=== PATIENT | female | born 1930 | race Caucasian/White ===

== ENCOUNTER → 2017-03-24 | Outpatient (CLI) | payer MEDICARE, BC ==
--- NOTE | 2017-03-24 15:29 | XR ---
Right knee HISTORY: Trauma and pain 3 views of the right knee Probable vascular calcifications noted incidentally. Bone mineralization is mildly reduced. Alignment and joint spaces are obtained. No joint effusion. IMPRESSION: No acute fracture or dislocation.
== END ==
LOC: RADXRYALE 11:43
PROVIDERS: ATTEND Physician Assistant
DX: M25.561 Pain in right knee (principal)

== ENCOUNTER 2017-06-05 18:52 | Emergency (ER) | payer MEDICARE, BC ==
[2017-06-05 19:05] VITALS: BP 149/70; PULSE 84; RESP 16; TEMP 97.8
--- NOTE | 2017-06-05 19:15 | ED ---
General Adult HPI - General Chief complaint: Extremity Injury, Upper Stated complaint: Fall Time Seen by Provider: 06/05/17 19:08 Source: patient, RN notes reviewed Mode of arrival: wheelchair Limitations: no limitations - History of Present Illness Initial comments: 86 -year-old female presents for a trip and fall. She states that she tripped over some cords at her house and found her left side. She states that she lightly left-sided forehead. Significant left-sided neck the left shoulder and left knee. She was able to get up by herself after the fall. She did not lose consciousness. There is no dizziness or chest pain prior to the fall. Patient states that she was concerned due to her continued pain mostly in left shoulder that she thought that she should be evaluated. Patient denies any other injuries. Patient denies any lacerations or abrasions.Patient denies any recent fever, chills, shortness of breath, chest pain, back pain, abdominal pain , nausea vomiting, numbness or tingling, dysuria or hematuria, constipation or diarrhea, headaches or visual changes, or any other current symptoms. - Related Data Home Medications Medication Instructions Recorded Confirmed Famotidine [Pepcid] 20 mg PO BID PRN 10/30/13 04/23/17 Allergies Allergy/AdvReac Type Severity Reaction Status Date / Time No Known Allergies Allergy Verified 06/05/17 19:04 Review of Systems ROS Statement: Those systems with pertinent positive or pertinent negative responses have been documented in the HPI. ROS Other: All systems not noted in ROS Statement are negative. Past Medical History Past Medical History: GERD/Reflux History of Any Multi-Drug Resistant Organisms: None Reported Past Surgical History: Appendectomy, Cholecystectomy Additional Past Surgical History / Comment(s): Patient beleived appendectomy was included with cholecystectomy. Past Anesthesia/Blood Transfusion Reactions: No Reported Reaction Past Psychological History: No Psychological Hx Reported Smoking Status: Never smoker Past Alcohol Use History: None Reported Past Drug Use History: None Reported - Past Family History Mother Family Medical History: Diabetes Mellitus General Exam Limitations: no limitations General appearance: alert, in no apparent distress Head exam: Present: atraumatic, normocephalic, normal inspection ENT exam: Present: normal exam, mucous membranes moist Neck exam: Present: normal inspection. Absent: tenderness, meningismus, lymphadenopathy Respiratory exam: Present: normal lung sounds bilaterally. Absent: respiratory distress, wheezes, rales, rhonchi, stridor Cardiovascular Exam: Present: regular rate, normal rhythm, normal heart sounds. Absent: systolic murmur, diastolic murmur, rubs, gallop, clicks Extremities exam: Present: normal inspection, full ROM, tenderness (To the left anterior shoulder.), normal capillary refill. Absent: pedal edema, joint swelling, calf tenderness Back exam: Present: normal inspection Neurological exam: Present: alert, oriented X3, CN II-XII intact, reflexes normal. Absent: motor sensory deficit Psychiatric exam: Present: normal affect, normal mood Course Vital Signs 06/05/17 19:02 Temperature 97.8 F Pulse Rate 84 Respiratory 16 Rate Blood Pressure 149/70 O2 Sat by Pulse 97 Oximetry Medical Decision Making - Medical Decision Making 86-year-old female presents emergency Department chief complaint of trip and fall. This time patient's imaging has reviewed and is negative for any acute processes. At this time we did discuss close follow-up we discussed return parameters discussed all questions. He stated the Colin they are in agreement this plan. We did discuss what to watch for. They will be discharged. - Radiology Data Radiology results: report reviewed, image reviewed Disposition Clinical Impression: Fall, Minor head injury without loss of consciousness, Contusion of left shoulder, Contusion of left knee Disposition: HOME SELF-CARE Condition: Stable Instructions: Fall Prevention for Older Adults (ED), Head Injury (ED) Additional Instructions: Please use medication as discussed. Please follow up with family doctor if symptoms have not improved over the next two days. Please return to the emergency room if your symptoms increase or worsen or for any other concerns. Referrals: Ryan Narvaez DO [Primary Care Provider] - 1-2 days Time of Disposition: 20:22
--- NOTE | 2017-06-05 19:49 | CT ---
EXAMINATION TYPE: CT brain ann wo con DATE OF EXAM: 06/05/2017 COMPARISON: 04/23/2017 HISTORY: Left sided facial injury after fall. CT DLP: 1304.4 mGycm Automated exposure control for dose reduction was used. TECHNIQUE: CT scan of the head and cervical spine are performed without contrast. FINDINGS: There is cerebral cortical atrophy. There is no mass effect nor midline shift. There is n o sign of intracranial hemorrhage. The calvarium is intact. There is mild hypodensity in the periventricular white matter. Cervical vertebra have normal alignment. There is some narrowing of cervical disc spaces. Posterior e lements appear intact. I see no fracture. Facet joints are intact. The skull base is intact. IMPRESSION: Cerebral atrophy and chronic small vessel ischemia. No adverse change compared to old exam. Mild spondylotic changes in the cervical spine. No fracture. No adverse change compared to old exam. No significant spinal stenosis.
--- NOTE | 2017-06-05 20:17 | XR ---
EXAMINATION TYPE: XR shoulder complete LT DATE OF EXAM: 06/05/2017 COMPARISON: NONE HISTORY: Shoulder pain TECHNIQUE: 2 views FINDINGS: I see no fracture nor dislocation. Joint spaces are normal. There are no pathologic calcifi cations. IMPRESSION: Negative left shoulder exam.
--- NOTE | 2017-06-05 20:18 | XR ---
EXAMINATION TYPE: XR knee complete LT DATE OF EXAM: 06/05/2017 COMPARISON: NONE HISTORY: Knee pain TECHNIQUE: 3 views FINDINGS: I see no fracture nor dislocation. Joint spaces are normal. There are no pathologic calcifi cations. There is no sign of joint effusion. IMPRESSION: Negative left knee exam.
== END 2017-06-05 20:33 | disposition home or self-care (01) ==
LOC: EC 18:52
DX: S40.012A Contusion of left shoulder, initial encounter (principal); S80.02XA Contusion of left knee, initial encounter; S09.90XA Unspecified injury of head, initial encounter; W01.0XXA Fall on same level from slipping, tripping and stumbling without subsequent striking against object, initial encounter; Y92.009 Unspecified place in unspecified non-institutional (private) residence as the place of occurrence of the external cause
CPT/HCPCS: 70450; 72125; 99284

== ENCOUNTER → 2017-12-25 | Outpatient (CLI) | payer MEDICARE, BC ==
--- NOTE | 2017-12-25 12:05 | CT ---
EXAMINATION TYPE: CT brain wo con DATE OF EXAM: 12/25/2017 COMPARISON: Prior CT brain 06/05/2017 HISTORY: Injury 2 days ago. Dizziness today CT DLP: 1072.3 mGycm Automated exposure control for dose reduction was used. CT scanning through the brain FINDINGS: No interval change. White matter demyelination is again noted. Prominence of the ventricles is stable . No hemorrhage. Cerebral vascular calcifications are present. IMPRESSION: STABLE EXAM, NO ACUTE ABNORMALITY.
== END | disposition home or self-care (01) ==
LOC: RADCTMAIN 11:30
PROVIDERS: ATTEND Family Medicine
DX: S09.90XA Unspecified injury of head, initial encounter (principal)
CPT/HCPCS: 70450

== ENCOUNTER 2019-04-14 11:26 | Emergency (ER) | payer MEDICARE, BC ==
[2019-04-14 11:35] VITALS: RESP 20; TEMP 97.5
--- NOTE | 2019-04-14 11:43 | ED ---
General Adult HPI - General Chief complaint: Fall Stated complaint: fall/head lac Time Seen by Provider: 04/14/19 11:30 Source: patient, family, EMS, RN notes reviewed, old records reviewed Mode of arrival: EMS Limitations: no limitations - History of Present Illness Initial comments: This is an 88-year-old female who comes in the emergency department complaining of a slight headache after having fallen and hit the back of her head per patient states she bent down to pick something up and then lost her balance and fell over. Patient states she hit the back of her head she did not loose consciousness and she was not dazed. Patient denies any new neck pain. Patient denies any numbness weakness. Patient states she moves her neck and it does not hurt. Patient states she has no visual disturbance. Patient denies any chest pain back pain abdominal pain or any extremity pain at this time. Patient's only complaint is a mild headache and some blood to the back of her head. - Related Data Home Medications Medication Instructions Recorded Confirmed Famotidine [Pepcid] 20 mg PO BID PRN 10/30/13 03/19/18 Multivitamins, Thera [Multivitamin 1 tab PO DAILY 03/19/18 03/19/18 (formulary)] Vitamin E 100 unit PO DAILY 03/19/18 03/19/18 Allergies Allergy/AdvReac Type Severity Reaction Status Date / Time No Known Allergies Allergy Verified 03/19/18 13:03 Review of Systems ROS Statement: Those systems with pertinent positive or pertinent negative responses have been documented in the HPI. ROS Other: All systems not noted in ROS Statement are negative. Past Medical History Past Medical History: GERD/Reflux History of Any Multi-Drug Resistant Organisms: None Reported Past Surgical History: Appendectomy, Cholecystectomy Additional Past Surgical History / Comment(s): Patient beleived appendectomy was included with cholecystectomy. Past Anesthesia/Blood Transfusion Reactions: No Reported Reaction Past Psychological History: No Psychological Hx Reported Smoking Status: Never smoker Past Alcohol Use History: None Reported Past Drug Use History: None Reported - Past Family History Mother Family Medical History: Diabetes Mellitus General Exam - General Exam Comments Initial Comments: GENERAL: Patient is well-developed and well-nourished. Patient is nontoxic and well- hydrated and is in mild distress. ENT: Neck is soft and supple. No significant lymphadenopathy is noted. Oropharynx is clear. Moist mucous membranes. Neck has full range of motion without eliciting any pain. EYES: The sclera were anicteric and conjunctiva were pink and moist. Extraocular movements were intact and pupils were equal round and reactive to light. Eyelids were unremarkable. PULMONARY: Unlabored respirations. Good breath sounds bilaterally. No audible rales rhonchi or wheezing was noted. CARDIOVASCULAR: There is a regular rate and rhythm without any murmurs gallops or rubs. ABDOMEN: Soft and nontender with normal bowel sounds. SKIN: Patient has a 2 and half centimeter occipital scalp laceration. NEUROLOGIC: Patient is alert and oriented x3. Cranial nerves II through XII are grossly intact. Motor and sensory are also intact. Normal speech, volume and content. Symmetrical smile. MUSCULOSKELETAL: Normal extremities with adequate strength and full range of motion. No lower extremity swelling or edema. No calf tenderness. LYMPHATICS: No significant lymphadenopathy is noted PSYCHIATRIC: Normal psychiatric evaluation. Limitations: no limitations Course Vital Signs 04/14/19 11:27 Temperature 97.5 F L Pulse Rate 72 Respiratory 20 Rate Blood Pressure 171/82 O2 Sat by Pulse 99 Oximetry Procedures - Laceration Laceration #1 Consent Obtained: verbal consent Site: scalp Description: linear Pre-repair: wound explored Type of Sutures: other (Staple) Number of Sutures: 3 Technique: simple, interrupted Complications: pain Patient Tolerated Procedure: well Medical Decision Making - Medical Decision Making CT of the head and C-spine showed no acute normalities. Patient had a 2.5 cm laceration on the scalp and I placed 3 shea to close the wound. Disposition Clinical Impression: Head injury, Scalp laceration Disposition: HOME SELF-CARE Condition: Good Instructions (If sedation given, give patient instructions): Fall Prevention for Older Adults (ED), Head Injury (ED), Laceration (ED) Additional Instructions: Staple should be taken out one week. Is patient prescribed a controlled substance at d/c from ED?: No Referrals: Ryan Narvaez DO [Primary Care Provider] - 1-2 days Time of Disposition: 12:39
[2019-04-14] MEDS ORDERED: DIPH,PERTUS(ACELL)TETVAC-LF 0.5 ML VIAL IM ONE (11:54)
--- NOTE | 2019-04-14 12:21 | CT ---
EXAMINATION TYPE: CT brain ann lowe DATE OF EXAM: 04/14/2019 COMPARISON: 03/19/1980 HISTORY: Fall with posterior head laceration. CT DLP: 1255.[address] of the brain was performed. The ventricles, basal cisterns and sulci overlying the cerebral convexities demonstrate moderate enla rgement. There is no evidence for intracranial hemorrhage or sulcal effacement. There is decreased attenuatio n about the periventricular white matter and deep white matter of both cerebral hemispheres, compatib le with chronic small vessel ischemia. No mass effects are seen. If symptoms persist consider MRI. Osseous calvarium is intact. IMPRESSION: 1. Age related atrophic and chronic small vessel ischemic change without acute intracranial process seen at this time. CT Cervical Spine: Unenhanced CT of the cervical spine was performed with bone and soft tissue window settings submitted . Coronal and sagittal reconstruction is obtained. There is normal alignment and prevertebral soft tissues. No evidence for acute cervical fracture . Scattered degenerative disc disease and spondylosis. Biapical scarring. IMPRESSION: 1. No evidence for acute fracture or subluxation of the cervical spine.
[2019-04-14 12:57] VITALS: BP 166/99; PULSE 70
== END 2019-04-14 13:08 | disposition home or self-care (01) ==
LOC: EC 11:26
DX: S01.01XA Laceration without foreign body of scalp, initial encounter (principal); K21.9 Gastro-esophageal reflux disease without esophagitis; Z79.899 Other long term (current) drug therapy; Z23 Encounter for immunization; W01.0XXA Fall on same level from slipping, tripping and stumbling without subsequent striking against object, initial encounter; Y93.89 Activity, other specified; Y92.009 Unspecified place in unspecified non-institutional (private) residence as the place of occurrence of the external cause
CPT/HCPCS: 12001; 70450; 72125; 90471; 90715; 99284